=== PATIENT | female | born 1965 | race Caucasian/White ===

== ENCOUNTER → 2020-12-24 | Outpatient (CLI) | payer OTHER ==
[~2020-12-24] MED LIST: ALPR0.5T93 PO; CARV3.122 PO; CEPH-368 PO; CETI10TA76 PO; CHOL2000 PO; FLUO10TA PO; HYDR-3653 PO; MONT10TA17 PO; ONDA8TAB16 SL; PANT20TA4 PO; PARO20TA4 PO; TAMS0.4C2 PO; arnica PO
[2020-12-24 16:16] LABS: ALANINE AMINOTRANSFERASE 35 U/L (12-78); ALBUMIN 3.9 g/dL (3.4-5.0); ANION GAP 4 mmol/L (5-15); CHLORIDE 107 mmol/L (98-107); CREATININE 0.93 mg/dL (0.55-1.02)
[2020-12-24 16:17] LABS: BASOPHILS % (AUTO) 1 % (0-1); EOSINOPHILS % (AUTO) 3 % (1-7); LYMPHOCYTES % (AUTO) 27 % (22-44); MEAN CORPUSCULAR HEMOGLOBIN 29.2 pg (27.0-34.8); MEAN CORPUSCULAR HGB CONC 33.5 g/dL (32.4-35.8); MEAN PLATELET VOLUME 7.8 fL (7.4-10.4); MONOCYTES % (AUTO) 6 % (2-9); NEUTROPHILS % (AUTO) 63 % (42-75); PLATELET COUNT 279 x10^3/uL (130-400); RED BLOOD COUNT 5.27 x10^6/uL (3.82-5.3)
[2020-12-24 16:18] LABS: ALKALINE PHOSPHATASE 135 U/L (45-117); BILIRUBIN,TOTAL 0.3 mg/dL (0.2-1.0); TOTAL PROTEIN 8.1 g/dL (6.4-8.2)
[2020-12-24 16:20] LABS: MD NO
[2020-12-24 16:42] LABS: MICROSCOPIC NOT IND
== END | disposition home or self-care (01) ==
LOC: STAR 15:00
PROVIDERS: ATTEND Obstetrics & Gynecology Gynecology
DX: Z01.812 Encounter for preprocedural laboratory examination (principal); Z20.822 Contact with and (suspected) exposure to COVID-19; N81.10 Cystocele, unspecified; N81.6 Rectocele
CPT/HCPCS: 36415; 71046; 80053; 81003; 85025; 93005; U0003

== ENCOUNTER 2020-12-28 11:01 | Observation (INO) | payer OTHER ==
[~2020-12-28] VITALS: Ht 177.8 cm; Wt 122.2 kg
[2020-12-28] MEDS ORDERED: FLUORESCEIN SODIUM 500 MG/5 ML ONE (11:08)
[2020-12-28] MEDS ORDERED: METHYLENE BLUE 50 MG/10 ML AMP ONE (11:08)
[2020-12-28] MEDS ORDERED: EPINEPHRINE 1 MG/ML, 1ML ONE (11:08)
[2020-12-28] MEDS ORDERED: LIDOCAINE/PF 1%, 30ML ONE (11:08)
[2020-12-28] MEDS ORDERED: NEOMY/POLYMYXIN B GU IRR. 1 ML ONE (11:09)
[2020-12-28] MEDS ORDERED: INDIGO CARMINE 0.8%, 5ML ONE (11:09)
[2020-12-28] MEDS ORDERED: THROMBIN 20,000 UNIT VIAL TP ONE (11:10)
[2020-12-28] MEDS ORDERED: FUROSEMIDE 20 MG/2 ML ONE (11:11)
[2020-12-28] MEDS ORDERED: LACTATED RINGERS 1,000 ML IV SCH (11:30)
[2020-12-28] MEDS ORDERED: CHLORHEXIDINE 15 ML UDC PO ONE (11:30)
[2020-12-28] MEDS ORDERED: CHLORHEXIDINE 15 ML UDC ONE (11:31)
[2020-12-28] MEDS ORDERED: PROPOFOL 50 ML ONE ×2 (12:53→15:02)
[2020-12-28] MEDS ORDERED: MIDAZOLAM 1 MG/ML, 2ML ONE (12:54)
[2020-12-28] MEDS ORDERED: FENTANYL PF 250 MCG/5ML ONE (12:55)
[2020-12-28] MEDS ORDERED: CEFAZOLIN 1,000 MG ONE (13:05)
[2020-12-28] MEDS ORDERED: EPHEDRINE 50 MG/ML, 1ML IM PRN (13:30)
[2020-12-28] MEDS ORDERED: OXYcodone 5 MG/5 ML ORAL.SOL UDC PO PRN (13:30)
[2020-12-28] MEDS ORDERED: DIPHENHYDRAMINE 50 MG/ML, 1ML IVPush PRN (13:30)
[2020-12-28] MEDS ORDERED: DIAZEPAM 5 MG/ML, 2ML IVPush PRN (13:30)
[2020-12-28] MEDS ORDERED: morphine SULFATE 10 MG/ML, 1ML IVPush PRN (13:30)
[2020-12-28] MEDS ORDERED: LABETALOL 5MG/ML, 20ML IV PRN (13:30)
[2020-12-28] MEDS ORDERED: FENTANYL PF 100 MCG/2ML IV PRN (13:30)
[2020-12-28] MEDS ORDERED: ONDANSETRON 2MG/ML, 2ML IVPush PRN (13:30)
[2020-12-28] MEDS ORDERED: EPHEDRINE 50 MG/ML, 1ML IVPush PRN (13:30)
[2020-12-28] MEDS ORDERED: MEPERIDINE/PF 25MG/0.5ML IVPush PRN (13:30)
[2020-12-28] MEDS ORDERED: PROMETHAZINE 25 MG/ML, 1ML IVPush PRN (13:30)
[2020-12-28] MEDS ORDERED: ACETAMINOPHEN 325 MG TABLET PO PRN (13:30)
[2020-12-28] MEDS ORDERED: ONDANSETRON 2MG/ML, 2ML ONE (13:40)
[2020-12-28] MEDS ORDERED: KETOROLAC 30 MG/1 ML ONE (13:40)
[2020-12-28] MEDS ORDERED: PROPOFOL 10 MG/ML, 20ML ONE (13:40)
[2020-12-28] MEDS ORDERED: DEXAMETHASONE 4 MG/ML, 5ML ONE (13:40)
[2020-12-28] MEDS ORDERED: ROCURONIUM 10MG/ML,5ML ONE (13:40)
[2020-12-28] MEDS ORDERED: SUCCINYLCHOLINE 20 MG/ML, 10ML ONE ×2 (13:40)
[2020-12-28] MEDS ORDERED: MEPERIDINE/PF 25MG/ML,1ML ONE (16:06)
[2020-12-28] MEDS ORDERED: ACETAMINOPHEN 650 MG/20.3 ML UDC ONE (16:43)
[2020-12-28] MEDS ORDERED: FENTANYL PF 100 MCG/2ML ONE (16:43)
[2020-12-28] MEDS ORDERED: OXYcodone 5 MG/5 ML ORAL.SOL UDC ONE (16:44)
[2020-12-28 17:45] VITALS: BP 135/81
[2020-12-28] MEDS: LACTATED RINGERS 1,000 ML IV SCH (19:00)
[2020-12-28 20:00] VITALS: BP 113/72
[2020-12-28] MEDS: HYDROcodone/APAP 5/325 TABLET PO PRN (23:49)
[2020-12-29 00:39] VITALS: BP 136/80
[2020-12-29 04:05] VITALS: BP 138/88
[2020-12-29] MEDS: LACTATED RINGERS 1,000 ML IV SCH ×3 (04:18→09:03)
[2020-12-29] MEDS: HYDROcodone/APAP 5/325 TABLET PO PRN ×2 (04:18→09:21)
[2020-12-29 06:50] VITALS: BP 138/82
[2020-12-29] MEDS ORDERED: NORCO PO (10:22)
[2020-12-29 11:28] VITALS: BP 141/90
== END 2020-12-29 11:50 | disposition home or self-care (01) ==
LOC: OUT 11:01 → 4NE 17:40 → OUT 17:50 → 4NE 18:25 → DCLOUNGE 12-29 11:39
PROVIDERS: ADMIT Obstetrics & Gynecology Gynecology; ATTEND Obstetrics & Gynecology Gynecology
DX: N83.8 Other noninflammatory disorders of ovary, fallopian tube and broad ligament (principal); N39.3 Stress incontinence (female) (male); D39.12 Neoplasm of uncertain behavior of left ovary; N81.12 Cystocele, lateral; N81.6 Rectocele; Z79.899 Other long term (current) drug therapy
CPT/HCPCS: 36415; 51990; 57240; 57283; 58661; 85014; 88112; 88305; 96360; 96361; C1771; G0378; J0171; J0330; J0690; J1100; J1885; J1940; J2175; J2250; J2405; J2704; J3010; J3490; J7120; Q9968

== ENCOUNTER 2021-05-09 11:13 | Outpatient (CLI) | payer OTHER ==
[~2021-05-09 11:13] MED LIST changes: +NORCO PO
[2021-05-09] MEDS ORDERED: ALBU18HF INH (11:35)
== END 2021-05-09 23:59 | disposition home or self-care (01) ==
LOC: STAR 11:13
PROVIDERS: ATTEND Orthopaedic Surgery Hand Surgery
DX: Z02.9 Encounter for administrative examinations, unspecified (principal)

== ENCOUNTER 2021-05-14 06:20 | Day surgery (SDC) | payer OTHER ==
[~2021-05-14] VITALS: Ht 177.8 cm; Wt 126.3 kg
[~2021-05-14 06:20] MED LIST changes: +ALBU18HF INH
[2021-05-14 06:46] VITALS: BP 136/87
[2021-05-14] MEDS ORDERED: CHLORHEXIDINE 15 ML UDC ONE (06:54)
[2021-05-14] MEDS ORDERED: CHLORHEXIDINE 15 ML UDC PO ONE (07:00)
[2021-05-14] MEDS ORDERED: LACTATED RINGERS 1,000 ML IV SCH (07:00)
[2021-05-14] MEDS ORDERED: MIDAZOLAM 1 MG/ML, 2ML ONE (07:15)
[2021-05-14] MEDS ORDERED: FENTANYL PF 250 MCG/5ML ONE (07:16)
[2021-05-14] MEDS ORDERED: PROPOFOL 10 MG/ML, 20ML ONE (07:17)
[2021-05-14] MEDS ORDERED: CEFAZOLIN 1,000 MG ONE ×2 (07:17→08:13)
[2021-05-14] MEDS ORDERED: ONDANSETRON 2MG/ML, 2ML ONE (07:17)
[2021-05-14] MEDS ORDERED: DEXAMETHASONE 4 MG/ML, 1ML ONE (07:17)
[2021-05-14] MEDS ORDERED: BUPIVACAINE/PF 0.5% ONE (07:50)
[2021-05-14] MEDS ORDERED: EPINEPHRINE 1 MG/ML, 1ML ONE (07:51)
[2021-05-14] MEDS ORDERED: SCOPOLAMINE 1MG PATCH TD ONE (07:53)
[2021-05-14] MEDS ORDERED: ROCURONIUM 10MG/ML,5ML ONE (07:58)
[2021-05-14] MEDS ORDERED: hydrALAzine 20 MG/ML, 1ML IV PRN (08:00)
[2021-05-14] MEDS ORDERED: HALOPERIDOL 5 MG/ML IV PRN (08:00)
[2021-05-14] MEDS ORDERED: MEPERIDINE/PF 25MG/0.5ML IVPush PRN (08:00)
[2021-05-14] MEDS ORDERED: LABETALOL 5MG/ML, 20ML IV PRN (08:00)
[2021-05-14] MEDS ORDERED: FENTANYL PF 100 MCG/2ML IV PRN (08:00)
[2021-05-14] MEDS ORDERED: ACETAMINOPHEN 325 MG TABLET PO PRN (08:00)
[2021-05-14] MEDS ORDERED: HYDROmorphone 1 MG/ML, 1ML INJ IVPush PRN (08:00)
[2021-05-14] MEDS ORDERED: PROMETHAZINE 25 MG/ML, 1ML IVPush PRN (08:00)
[2021-05-14] MEDS ORDERED: morphine SULFATE 10 MG/ML, 1ML IVPush PRN (08:00)
[2021-05-14] MEDS ORDERED: FENTANYL PF 100 MCG/2ML ONE (10:30)
[2021-05-14] MEDS ORDERED: OXYcodone 5 MG/5 ML ORAL.SOL UDC ONE (10:30)
[2021-05-14] MEDS ORDERED: MEPERIDINE/PF 25MG/ML,1ML ONE (10:30)
[2021-05-14] MEDS ORDERED: OXYcodone 5 MG/5 ML ORAL.SOL UDC PO PRN (11:00)
== END 2021-05-14 13:15 | disposition home or self-care (01) ==
LOC: OUT 06:20
PROVIDERS: ATTEND Orthopaedic Surgery Hand Surgery
DX: S52.121A Displaced fracture of head of right radius, initial encounter for closed fracture (principal); I10 Essential (primary) hypertension; J45.909 Unspecified asthma, uncomplicated; K21.9 Gastro-esophageal reflux disease without esophagitis; G47.33 Obstructive sleep apnea (adult) (pediatric); Z20.822 Contact with and (suspected) exposure to COVID-19; Z79.891 Long term (current) use of opiate analgesic; Z79.899 Other long term (current) drug therapy; X58.XXXA Exposure to other specified factors, initial encounter; Y93.89 Activity, other specified; Y92.89 Other specified places as the place of occurrence of the external cause; Y99.8 Other external cause status
CPT/HCPCS: 24666; 73070; 87635; C1776; J0171; J0690; J1100; J2175; J2250; J2405; J2704; J3010; J7120; 76000